=== PATIENT | female | born 1995 | race Caucasian/White ===

== ENCOUNTER 2018-11-10 23:32 | Emergency (ER) | END 2018-11-11 00:18 | disposition left against medical advice (07) | LOC: ER 23:32 | DX: Z53.21 Procedure and treatment not carried out due to patient leaving prior to being seen by health care provider (principal) ==

== ENCOUNTER 2019-03-19 03:22 | Emergency (ER) | payer BC, OTHER ==
[2019-03-19] MEDS ORDERED: KETOROLAC TROMETHAMINE INJ/PF 30 MG/1 ML SDV IV ONE (04:31)
[2019-03-19] MEDS ORDERED: ONDANSETRON HCL INJ/PF 4 MG/2 ML SDV IV ONE (04:31)
--- NOTE | 2019-03-19 04:34 | ER Document Report ---
ED Medical Screen (RME) - General Chief Complaint: Abdominal Pain Stated Complaint: NAUSEA Time Seen by Provider: 03/19/19 04:27 Notes: Patient is a 23-year-old female that comes to the emergency department for chief complaint of sharp pain in her right upper quadrant with nausea. Symptoms woke her up tonight. Denies history of the same. Denies surgeries or any past medical history. TRAVEL OUTSIDE OF THE [place] IN LAST 30 DAYS: No - Related Data Allergies/Adverse Reactions: No Known Drug Allergies Allergy (Verified 11/10/18 23:38) Physical Exam - Vital signs Vitals: Temp Pulse Resp BP Pulse Ox 97.9 F 72 16 125/77 99 03/19/19 03:27 03/19/19 03:27 03/19/19 03:27 03/19/19 03:27 03/19/19 03:27 - Abdominal Tenderness: Tender - Tenderness in the epigastric area and right upper quadrant, remaining abdomen is completely benign. No guarding or rigidity. Course - Re-evaluation Re-evalutation: I have greeted and performed a rapid initial assessment of this patient. A comprehensive ED assessment and evaluation of the patient, analysis of test results and completion of the medical decision making process will be conducted by additional ED providers. - Vital Signs Vital signs: Temp Pulse Resp BP Pulse Ox 97.9 F 72 16 125/77 99 03/19/19 03:27 03/19/19 03:27 03/19/19 03:27 03/19/19 03:27 03/19/19 03:27
[2019-03-19 04:53] LABS: APPEARANCE,URINE CLEAR; BILIRUBIN,URINE NEGATIVE (NEGATIVE); COLOR,URINE YELLOW; GLUCOSE, URINE NEGATIVE (NEGATIVE); KETONES,URINE NEGATIVE (NEGATIVE); LEUKOCYTE ESTERASE,URINE NEGATIVE (NEGATIVE); NITRITE,URINE NEGATIVE (NEGATIVE); PROTEIN,URINE NEGATIVE (NEGATIVE); URINE SPECIFIC GRAVITY 1.013; UROBILINOGEN,URINE NEGATIVE mg/dL (<2.0)
[2019-03-19 04:57] LABS: ABSOLUTE EOSINOPHILS # (AUTO) 0.1 10^3/uL (0.0-0.6); ABSOLUTE LYMPHOCYTES (AUTO) 1.8 10^3/uL (0.5-4.7); ABSOLUTE MONOCYTES (AUTO) 0.6 10^3/uL (0.1-1.4); ABSOLUTE NEUT (AUTO) 3.6 10^3/uL (1.7-8.2); BASOPHILS % (AUTO) 0.7 % (0-2); EOSINOPHILS % (AUTO) 1.9 % (0-6); HEMATOCRIT 40.1 % (36.0-47.0); HEMOGLOBIN 13.7 g/dL (12.0-15.5); LYMPHOCYTES % (AUTO) 29.9 % (13-45); MEAN CORPUSCULAR HEMOGLOBIN 30.8 pg (27.0-33.4); MEAN CORPUSCULAR HGB CONC 34.3 g/dL (32.0-36.0); MEAN CORPUSCULAR VOLUME 90 fl (80-97); MONOCYTES % (AUTO) 9.3 % (3-13); PLATELET COUNT 150 10^3/uL (150-450); RED BLOOD COUNT 4.46 10^6/uL (3.72-5.28); SEGMENTED NEUTROPHILS % (AUTO) 58.2 % (42-78); TOTAL CELLS COUNTED % (AUTO) 100 %; WHITE BLOOD COUNT 6.1 10^3/uL (4.0-10.5)
[2019-03-19 05:21] LABS: ALANINE AMINOTRANSFERASE 15 U/L (9-52); ALBUMIN 4.7 g/dL (3.5-5.0); ALKALINE PHOSPHATASE 56 U/L (38-126); ANION GAP 9 (5-19); ASPARTATE AMINO TRANSFERASE 21 U/L (14-36); BILIRUBIN,DIRECT 0.2 mg/dL (0.0-0.4); BILIRUBIN,TOTAL 0.7 mg/dL (0.2-1.3); BLOOD UREA NITROGEN 9 mg/dL (7-20); CALCIUM 9.7 mg/dL (8.4-10.2); CARBON DIOXIDE 29 mmol/L (22-30); CHLORIDE 102 mmol/L (98-107); GLUCOSE 86 mg/dL (75-110); LIPASE 56.2 U/L (23-300); POTASSIUM 4.1 mmol/L (3.6-5.0); SODIUM 139.6 mmol/L (137-145); TOTAL PROTEIN 7.4 g/dL (6.3-8.2)
--- NOTE | 2019-03-19 05:29 | RADIOLOGY REPORT (SQ) ---
EXAM DESCRIPTION: US ABDOMEN LIMITED COMPLETED DATE/TME: 03/19/2019 04:32 CLINICAL HISTORY: 23 years Female, RUQ pain Comparison: None. LIMITATIONS: None. FINDINGS: Gallbladder, negative sonographic Shearer's test, liver, a 0.2-cm diameter common bile duct, no intrahepatic ductal dilation, hepatopetal patent flow of the portal vein, 10-cm right kidney, pancreas, visualized vasculature/abdominal aorta, and no significant ascites appear otherwise unremarkable. IMPRESSION: Normal RUQ-Abdominal Sonogram.
--- NOTE | 2019-03-19 06:39 | ER Document Report ---
ED General - General Chief Complaint: Abdominal Pain Stated Complaint: NAUSEA Time Seen by Provider: 03/19/19 04:27 TRAVEL OUTSIDE OF THE [place] IN LAST 30 DAYS: No - HPI Notes: Patient is a 23-year-old female that presents to the emergency department for chief complaint of abdominal pain. Patient reports acute onset of pain in her right upper abdomen at midnight. She states that she fell back asleep and then woke up at 2 AM with worse pain. She denies any associated nausea, vomiting, fevers or black bloody stools. She states her last bowel movement was yesterday and was normal for her. She denies any history of surgery in the past. She did not take any medication for her symptoms. Currently she states the pain is significantly better than at 2 AM. She denied any radiation of the pain. She states it was worse when she laid on her sides and somewhat better when she laid flat on her back. She denies any history of heavy lifting injury or trauma. She denies history of similar pains in the past. She did states she ate a quantity of popcorn prior to going to bed last night but denied any other new foods. Past Medical History: Negative Past Surgical History: Negative Social History: Denies drugs alcohol and tobacco Family History: Reviewed and noncontributory for presenting illness Allergies: Reviewed, see documented allergy list. REVIEW OF SYSTEMS: CONSTITUTIONAL : No fever No chills No diaphoresis No recent illness EENT: No vision changes No congestion No sore throat CARDIOVASCULAR: No chest pain No palpitations RESPIRATORY: No shortness of breath No cough No difficulty breathing GASTROINTESTINAL: abdominal pain No nausea No vomiting No diarrhea GENITOURINARY: No dysuria No hematuria No difficulty urinating MUSCULOSKELETAL: No back pain No leg pain No arm pain SKIN: No rashes No lesions LYMPHATIC: No swollen, enlarged glands. NEUROLOGICAL: No lightheadedness No headache No weakness No paresthesias PSYCHIATRIC: No anxiety No depression PHYSICAL EXAMINATION: Vital signs reviewed, nursing noted reviewed. GENERAL: Well-appearing, well-nourished and in no acute distress. HEAD: Atraumatic, normocephalic. EYES: Eyes appear normal, extraocular movements intact, sclera anicteric, conjunctiva are normal. ENT: nares patent, oropharynx clear without exudates. Moist mucous membranes. NECK: Normal range of motion, supple without lymphadenopathy LUNGS: Breath sounds clear to auscultation bilaterally and equal. No wheezes rales or rhonchi. HEART: Regular rate and rhythm without murmurs ABDOMEN: Soft, mild tenderness just superior lateral to the umbilicus, negative Shearer sign, no appreciable abdominal hernia, normoactive bowel sounds. No rebound, guarding, or rigidity. No masses appreciated. EXTREMITIES: Nontender, good range of motion, no pitting or edema. NEUROLOGICAL: No focal neurological deficits. Moves all extremities spontaneously Motor and sensory grossly intact on exam. PSYCH: Normal mood, normal affect. SKIN: Warm, Dry, normal turgor, no rashes or lesions noted on exposed skin - Related Data Allergies/Adverse Reactions: No Known Drug Allergies Allergy (Verified 11/10/18 23:38) Past Medical History - Social History Smoking Status: Never Smoker Family History: Reviewed & Not Pertinent Patient has suicidal ideation: No Patient has homicidal ideation: No Renal/ Medical History: Denies: Hx Peritoneal Dialysis Physical Exam - Vital signs Vitals: Temp Pulse Resp BP Pulse Ox 97.9 F 72 16 125/77 99 03/19/19 03:27 03/19/19 03:27 03/19/19 03:27 03/19/19 03:27 03/19/19 03:27 Course - Re-evaluation Re-evalutation: 03/19/19 06:38 Vitals reviewed. Nursing notes reviewed. Patient afebrile and nontoxic. Ultrasound of the right upper quadrant shows no acute cholecystitis. She has normal liver and kidney function. She appears well-hydrated with normal electrolytes. Currently patient states she is comfortable and her pain has significantly improved. She will follow with her PCP for further work-up. She was counseled on return precautions and verbalized understanding. Her pain may be related to abdominal wall strain versus constipation. She is in agreement with plan of care and discharge. Laboratory 03/19/19 03/19/19 03/19/19 04:37 04:45 04:45 WBC 6.1 RBC 4.46 Hgb 13.7 Hct 40.1 MCV 90 MCH 30.8 MCHC 34.3 RDW 12.0 Plt Count 150 Seg Neutrophils % 58.2 Lymphocytes % 29.9 Monocytes % 9.3 Eosinophils % 1.9 Basophils % 0.7 Absolute Neutrophils 3.6 Absolute Lymphocytes 1.8 Absolute Monocytes 0.6 Absolute Eosinophils 0.1 Absolute Basophils 0.0 Sodium 139.6 Potassium 4.1 Chloride 102 Carbon Dioxide 29 Anion Gap 9 BUN 9 Creatinine 0.57 Est GFR ( Amer) > 60 Est GFR (Non-Af Amer) > 60 Glucose 86 Calcium 9.7 Total Bilirubin 0.7 Direct Bilirubin 0.2 Neonat Total Bilirubin Not Reportable Neonat Direct Bilirubin Not Reportable Neonat Indirect Bili Not Reportable AST 21 ALT 15 Alkaline Phosphatase 56 Total Protein 7.4 Albumin 4.7 Lipase 56.2 Urine Color YELLOW Urine Appearance CLEAR Urine pH 5.0 Ur Specific [place] 1.013 Urine Protein NEGATIVE Urine Glucose (UA) NEGATIVE Urine Ketones NEGATIVE Urine Blood NEGATIVE Urine Nitrite NEGATIVE Urine Bilirubin NEGATIVE Urine Urobilinogen NEGATIVE Ur Leukocyte Esterase NEGATIVE Urine WBC (Auto) 0 Urine RBC (Auto) 0 Urine Bacteria (Auto) TRACE Urine Mucus (Auto) FEW Urine Ascorbic Acid NEGATIVE Urine HCG, Qual NEGATIVE Abdomen Ultrasound 03/19/19 04:32 IMPRESSION: Normal RUQ-Abdominal Sonogram. - Vital Signs Vital signs: Temp Pulse Resp BP Pulse Ox 97.9 F 72 16 125/77 99 03/19/19 03:27 03/19/19 03:27 03/19/19 03:27 03/19/19 03:27 03/19/19 03:27 - Laboratory Result Diagrams: 03/19/19 04:45 03/19/19 04:45 Discharge - Discharge Clinical Impression: Abdominal pain, right upper quadrant Condition: Stable Disposition: HOME, SELF-CARE Instructions: Abdominal Pain ([facility]) Additional Instructions: Please return to the emergency department if you have any worsening, or concern of your symptoms. Please return to the emergency department if you develop chest pain, difficulty breathing, severe abdominal pain, or ongoing vomiting. Please follow-up with your primary care physician in 2-3 days and any other recommended physicians. If prescribed, take all medications as directed. If you have any questions or concerns do not hesitate to return the emergency department for evaluation.
[2019-03-19 07:32] VITALS: BP 104/56
== END 2019-03-19 07:33 | disposition home or self-care (01) ==
LOC: ER 03:22
DX: R10.11 Right upper quadrant pain (principal)
CPT/HCPCS: 99284; 96374; 96375; 36415; 83690; 85025; 81025; 80053; 81001; 76705; J1885; J2405

== ENCOUNTER 2020-04-23 21:15 | Emergency (ER) | payer BC, OTHER ==
--- NOTE | 2020-04-23 22:51 | ER Document Report ---
ED Medical Screen (RME) - General Stated Complaint: TIGHTNESS OF THE THROAT/PAIN IN BACK AND CHEST Time Seen by Provider: 04/23/20 22:40 Mode of Arrival: Ambulatory Information source: Patient Notes: Patient is an otherwise healthy 24-year-old female who recently stopped taking prednisone, Claritin, famotidine for poison jaguar exposure. Patient reports she now pain in her chest and back and she also reports that she feels kind of "foggy". Lungs is clear and equal bilaterally. Heart sounds S1-S2 present, no ectopy noted. I have greeted and performed a rapid initial assessment of this patient. A comprehensive ED assessment and evaluation of the patient, analysis of test results and completion of the medical decision making process will be conducted by additional ED providers. I have specifically instructed the patient or family members with the patient to immediately return to any nursing staff should anything change in the patient's condition or with their chief complaint. TRAVEL OUTSIDE OF THE [place] IN LAST 30 DAYS: No - Related Data Allergies/Adverse Reactions: No Known Drug Allergies Allergy (Verified 11/10/18 23:38) Past Medical History Renal/ Medical History: Denies: Hx Peritoneal Dialysis Physical Exam - Vital signs Vitals: Temp Pulse Resp BP Pulse Ox 98.4 F 75 16 136/98 H 98 04/23/20 21:33 04/23/20 21:33 04/23/20 21:33 04/23/20 21:33 04/23/20 21:33 Course - Vital Signs Vital signs: Temp Pulse Resp BP Pulse Ox 98.4 F 75 16 136/98 H 98 04/23/20 21:33 04/23/20 21:33 04/23/20 21:33 04/23/20 21:33 04/23/20 21:33
--- NOTE | 2020-04-23 23:46 | RADIOLOGY REPORT (SQ) ---
EXAM DESCRIPTION: XR CHEST 2 VIEWS COMPLETED DATE/TME: 04/23/2020 22:49 CLINICAL HISTORY: 24 years, Female, chest pain COMPARISON: None. NUMBER OF VIEWS: 2 TECHNIQUE: Frontal and lateral radiographs were obtained LIMITATIONS: None. FINDINGS: Cardiac and mediastinal contours are normal in appearance. Lungs are clear. No pleural effusion or pneumothorax. IMPRESSION: No acute disease. copyright 2010 [employer]- All Rights Reserved
[2020-04-24] MEDS ORDERED: FAMOTIDINE 20 MG TABLET PO ONE (00:03)
--- NOTE | 2020-04-24 00:06 | ER Document Report ---
ED General - General Chief Complaint: Chest Pain Stated Complaint: TIGHTNESS OF THE THROAT/PAIN IN BACK AND CHEST Time Seen by Provider: 04/23/20 22:40 Mode of Arrival: Ambulatory Notes: Patient is a 24-year-old female with no past medical history who presents to the emergency department with a chief complaint of an irritated throat, back pain, chest pain, and "fogginess" that started 4 days ago. Patient states that she was recently treated with prednisone, famotidine, Benadryl, and Claritin to treat poison sumac on April 14. Patient recently stopped taking everything except prednisone. Shortly after, she ended up having her symptoms. She denies any vomiting, melena stools, or any other symptoms. TRAVEL OUTSIDE OF THE [place] IN LAST 30 DAYS: No - Related Data Allergies/Adverse Reactions: No Known Drug Allergies Allergy (Verified 11/10/18 23:38) Home Medications: Prednisone Past Medical History - General Information source: Patient - Social History Smoking Status: Never Smoker Chew tobacco use (# tins/day): No Frequency of alcohol use: None Drug Abuse: None Family History: Reviewed & Not Pertinent Renal/ Medical History: Denies: Hx Peritoneal Dialysis Review of Systems - Review of Systems Notes: REVIEW OF SYSTEMS: CONSTITUTIONAL : Denies recent illness. Denies recent unintentional weight loss. Denies fever, chills, or sweats. EENT: Denies eye, ear, throat, or mouth pain, discharge, or symptoms. Denies nasal or sinus congestion. CARDIOVASCULAR: See HPI. RESPIRATORY: Denies shortness of breath, cough, congestion, difficulty breathing, or wheezing. GASTROINTESTINAL: See HPI. GENITOURINARY: Denies difficulty urinating, burning, blood in urine, urgency or frequency. MUSCULOSKELETAL: Denies neck and back pain. Denies joint pain or swelling. SKIN: Denies rash, itchiness, or lesions HEMATOLOGIC : Denies easy bruising or bleeding. LYMPHATIC: Denies swollen, painful, enlarged glands. NEUROLOGICAL: Denies no numbness or tingling denies weakness. Denies headache. Denies altered mental status. Denies alteration in speech. PSYCHIATRIC: Denies stress, anxiety, alteration in sleep patterns, or depression. All other systems reviewed and negative. Physical Exam - Vital signs Vitals: Temp Pulse Resp BP Pulse Ox 98.4 F 75 16 136/98 H 98 04/23/20 21:33 04/23/20 21:33 04/23/20 21:33 04/23/20 21:33 04/23/20 21:33 - Notes Notes: PHYSICAL EXAMINATION: GENERAL: Appears well, healthy, well-nourished, no acute distress. HEAD: Normocephalic, atraumatic. EYES: PERRL, conjunctiva normal, all extraocular movements intact, sclera nonicteric ENT: Moist mucous membranes. NECK: Supple, no noticeable swelling, redness, rash. Normal range of motion. LUNGS: Equal breath sounds bilaterally and clear to auscultation. No wheezes rales or rhonchi. CARDIOVASCULAR: S1-S2, regular rate, regular rhythm. Radial pulses 2+, normal. ABDOMEN: Normoactive bowel sounds. Soft, nontender, no guarding, no rebound tenderness, and no masses palpated. EXTREMITIES: Normal strength and range of motion, no pitting or edema. No cyanosis. NEUROLOGICAL: Moves all extremities upon command. Strength 5/5 in all extremities. PSYCH: Normal mood, normal affect. SKIN: Warm, dry. No rash, lesions, ulcerations noted. Normal skin turgor. Course - Re-evaluation Re-evalutation: 04/24/20 00:02 Chest x-ray is unremarkable. Patient is nontoxic in appearance. No evidence of pneumonia or pneumothorax. Patient symptoms are consistent with gastritis from taking prednisone. Will restart patient back on famotidine. She is in agreement with this plan. Follow-up precautions were given. Verbal discharge instructions were given to the patient. They verbalized understanding. They are stable for discharge. - Vital Signs Vital signs: Temp Pulse Resp BP Pulse Ox 98.4 F 75 16 136/98 H 98 04/23/20 22:40 04/23/20 21:33 04/23/20 21:33 04/23/20 21:33 04/23/20 21:33 Discharge - Discharge Clinical Impression: Tightness in chest Gastritis Qualifiers: Gastritis type: unspecified gastritis Chronicity: acute Gastritis bleeding: presence of bleeding unspecified Qualified Code(s): K29.00 - Acute gastritis without bleeding Condition: Stable Disposition: HOME, SELF-CARE Additional Instructions: You were seen today in the emergency department for tightness in your chest and throat. You can take [id number] famotidine 40 mg twice a day until you are done with your prednisone. You may also take it a few days after prednisone to help prevent them as of gastritis. Up with your primary care provider in regards to this visit. Referrals: [facility] [place] [Provider Group] - Follow up as needed
[2020-04-24 00:20] VITALS: BP 142/88
--- NOTE | 2020-04-24 14:17 | EKG REPORT ---
SEVERITY:- NORMAL ECG - SINUS RHYTHM : Confirmed by: Dagoberto Mc MD 24-Apr-2020 14:16:43
== END 2020-04-24 00:20 | disposition home or self-care (01) ==
LOC: ER 21:15
DX: R07.89 Other chest pain (principal); K29.00 Acute gastritis without bleeding; R09.89 Other specified symptoms and signs involving the circulatory and respiratory systems; L23.7 Allergic contact dermatitis due to plants, except food
CPT/HCPCS: 71046; 93005; 93010; 99284